=== PATIENT | female | born 1945 | race Caucasian/White ===

== ENCOUNTER 2017-05-08 16:00 | Emergency (ER) | payer OTHER ==
[2017-05-08 16:14] VITALS: PULSE 83; BMI 26.4
--- NOTE | 2017-05-08 17:53 | PDOC ---
History of Present Illness - History of Present Illness Initial Comments: 05/08/17 18:29 The patient is a 71 year old female, with no significant past medical history, who presents to the emergency department with abdominal pressure and pain to the left lower quadrant for 3 days. The patient reports the abdominal pressure and pain as 5/10 in severity, constant, and localized to the left lower quadrant. She reports the pressure is alleviated after a bowel movement and reports her last BM was loose, formed, and brown this morning. She reports some nausea but denies vomiting. She denies chest pain, shortness of breath, headache and dizziness. She denies fever, chills, vomit, diarrhea and constipation. She denies dysuria, frequency, urgency and hematuria. Allergies: NKDA Past surgical history: bilateral oophorectomy, cataract PCP - Dr. Roberto Duque <Juana Duran - Last Filed: 05/08/17 18:29> - General History Source: Patient Exam Limitations: No Limitations <Roseann Live - Last Filed: 05/09/17 11:45> - General Chief Complaint: Pain Stated Complaint: ABD PAIN (PCP SENT) divertic Time Seen by Provider: 05/08/17 17:53 Past History <Juana Duran - Last Filed: 05/08/17 18:29> - Past Medical History Other medical history: glucoma - Psycho/Social/Smoking Cessation Hx Anxiety: No Suicidal Ideation: No Smoking History: Never smoked Have you smoked in the past 12 months: No Information on smoking cessation initiated: No Hx Alcohol Use: No Drug/Substance Use Hx: No Substance Use Type: None <Roseann Live - Last Filed: 05/09/17 11:45> - Past Medical History Allergies/Adverse Reactions: Allergies Allergy/AdvReac Type Severity Reaction Status Date / Time No Known Allergies Allergy Verified 05/08/17 16:10 Home Medications: Ambulatory Orders Ibuprofen [Motrin] 600 mg PO TID #30 tablet 05/08/17 Levofloxacin [Levaquin -] 500 mg PO DAILY #7 tablet 05/08/17 Metoclopramide HCl [Reglan -] 10 mg PO QID #28 tablet 05/08/17 Metronidazole [Flagyl] 500 mg PO BID #14 tablet 05/08/17 Oxycodone HCl/Acetaminophen [Percocet 5-325 mg Tablet] 1 - 2 tab PO Q6H #20 tablet MDD 4 05/08/17 Timolol 0.5% [Timoptic 0.5%] 1 drop OD DAILY 05/08/17 Review of Systems - Review of Systems Able to Perform ROS?: Yes Comments:: 05/08/17 18:29 CONSTITUTIONAL: Absent: fever, no chills, no fatigue EYES: Absent: visual changes ENT: Absent: ear pain, no sore throat CARDIOVASCULAR: Absent: chest pain, no palpitations RESPIRATORY: Absent: cough, no SOB GASTROINTESTINAL: (+) LLQ pain and pressure. mild nausea. Absent: no vomiting, no constipation, no diarrhea GENITOURINARY: Absent: dysuria, no frequency, no hematuria MUSCULOSKELETAL: Absent: back pain, no arthralgia, no myalgia SKIN: Absent: rash NEURO: Absent: headache <Juana Duran - Last Filed: 05/08/17 18:29> *Physical Exam - Vital Signs Last Vital Signs Temp Pulse Resp BP Pulse Ox 98.3 F 83 18 169/71 100 05/08/17 16:11 05/08/17 16:11 05/08/17 16:11 05/08/17 16:11 05/08/17 16:11 - Physical Exam Comments: 05/08/17 18:30 GENERAL: The patient is in no acute distress. HEAD: Normal with no signs of trauma. EYES: PERRLA, EOMI, sclera anicteric, conjunctiva clear. ENT: Ears normal, nares patent, oropharynx clear without exudates. Moist mucous membranes. NECK: Normal range of motion, supple without lymphadenopathy, JVD, or masses. LUNGS: Breath sounds equal, clear to auscultation bilaterally. No wheezes, and no crackles. HEART:Regular rate and rhythm, normal S1 and S2 without murmur, rub or gallop. ABDOMEN: (+) LLQ tenderness to palpation without guarding or rebound. Soft, normoactive bowel sounds. No guarding, no rebound. No masses palpable. EXTREMITIES: Normal range of motion, no edema. No clubbing or cyanosis. No erythema, or tenderness. NEUROLOGICAL: Cranial nerves II through XII grossly intact. Normal speech. No focal neurological deficits. MUSCULOSKELETAL: Back non-tender to palpation, no CVA tenderness SKIN: Warm, Dry, normal turgor, no rashes or lesions noted. <Juana Duran - Last Filed: 05/08/17 18:29> - Vital Signs Last Vital Signs Temp Pulse Resp BP Pulse Ox 98.3 F 83 18 169/71 100 05/08/17 16:11 05/08/17 16:11 05/08/17 16:11 05/08/17 16:11 05/08/17 16:11 <Roseann Live - Last Filed: 05/09/17 11:45> ED Treatment Course - LABORATORY CBC & Chemistry Diagram: 05/08/17 18:03 05/08/17 18:22 <Roseann Live - Last Filed: 05/09/17 11:45> Medical Decision Making - Medical Decision Making 05/08/17 17:53 A portion of this note was documented by scribe services under my direction. I have reviewed the details of the note, within reason, and agree with the documentation with the following case summary and management plan written by me. Nursing documentation reviewed and incorporated into medical decision making 05/09/17 11:43 This patient is a 71-year-old female with no major medical problems who presents emergency department with several days of left lower quadrant pain and tenderness. No fevers or chills. No prior episodes like this Tolerating PO but has switched to a liquid diet and has decreased po intacke Was seen at urgent care Sent to the ER for evaluation Examination concerning for LLQ tenderness No involuntary guarding or rebound Will do labs Will plan for CT scan Pt signed out to Dr Simons pending Labs and CT <Roseann Live - Last Filed: 05/09/17 11:45> *DC/Admit/Observation/Transfer - Attestations Scribe Attestion: 05/08/17 18:31 Documentation prepared by Juana Duran, acting as medical economics consultant for Roseann Live MD <Juana Duran - Last Filed: 05/08/17 18:29> <Roseann Live - Last Filed: 05/09/17 11:45> Diagnosis at time of Disposition: Diverticulitis - Prescriptions Prescriptions: Metronidazole [Flagyl] 500 mg PO BID #14 tablet Levofloxacin [Levaquin -] 500 mg PO DAILY #7 tablet Ibuprofen [Motrin] 600 mg PO TID #30 tablet Oxycodone HCl/Acetaminophen [Percocet 5-325 mg Tablet] 1 - 2 tab PO Q6H #20 tablet MDD 4 Metoclopramide HCl [Reglan -] 10 mg PO QID #28 tablet - Referrals Referrals: Loly Menezes MD [Primary Care Provider] - Naveen Mccollum MD [Staff Physician] - - Patient Instructions Printed Discharge Instructions: DI for Diverticulitis, DI for Diverticulosis
[2017-05-08 18:47] LABS: BASOPHIL 0.4 % (0-2.0); EOSINOPHIL 0.5 % (0-4.5); MCH 29.4 pg (25.7-33.7); MCHC 34.1 g/dl (32.0-36.0); MEAN CELL VOLUME 86.1 fl (80-96); MEAN PLT VOLUME 9.1 fl (7.5-11.1); NEUTROPHILS 81.4 % (42.8-82.8); PLATELET COUNT 248 K/MM3 (134-434); RDW 13.5 % (11.6-15.6); WHITE BLOOD COUNT 12.4 K/mm3 (4.0-10.0)
[2017-05-08 18:57] LABS: URINE APPEARANCE CLEAR; URINE BILIRUBIN NEGATIVE (NEGATIVE); URINE BLOOD NEGATIVE (NEGATIVE); URINE COLOR YELLOW; URINE GLUCOSE (UA) NEGATIVE (NEGATIVE); URINE KETONE TRACE (NEGATIVE); URINE LEUK ESTERASE NEGATIVE (NEGATIVE); URINE NITRITE NEGATIVE (NEGATIVE); URINE PROTEIN NEGATIVE (NEGATIVE); URINE UROBILINOGEN NEGATIVE mg/dL (0.2-1.0)
[2017-05-08 19:23] LABS: ALBUMIN 3.6 g/dl (3.4-5.0); ANION GAP 6 (8-16); BILIRUBIN,TOTAL 0.6 mg/dL (0.2-1.0); CALCIUM 9.4 mg/dL (8.5-10.1); CO2 28 mmol/L (21-32); CREATININE 0.9 mg/dL (0.55-1.02); GLUCOSE,RANDOM 114 mg/dL (74-106); SGOT/AST 13 U/L (15-37); SGPT/ALT 22 U/L (12-78); TOT PROT 7.2 g/dl (6.4-8.2)
[2017-05-08 19:24] LABS: ALK PHOS 92 U/L (45-117)
[2017-05-08] MEDS ORDERED: metroNIDAZOLE 250 MG TABLET PO ONE (22:20)
[2017-05-08] MEDS ORDERED: LEVOFLOXACIN 500 MG TABLET (FP) PO ONE (22:20)
--- NOTE | 2017-05-08 22:27 | PDOC ---
*Physical Exam - Vital Signs Last Vital Signs Temp Pulse Resp BP Pulse Ox 98.3 F 83 18 169/71 100 05/08/17 16:11 05/08/17 16:11 05/08/17 16:11 05/08/17 16:11 05/08/17 16:11 ED Treatment Course - LABORATORY CBC & Chemistry Diagram: 05/08/17 18:03 05/08/17 18:22 - ADDITIONAL ORDERS Additional order review: Laboratory Results 05/08/17 05/08/17 18:22 18:03 Sodium 136 Potassium 4.1 Chloride 102 Carbon Dioxide 28 Anion Gap 6 L BUN 12 Creatinine 0.9 Creat Clearance w eGFR > 60 Random Glucose 114 H Calcium 9.4 Total Bilirubin 0.6 AST 13 L ALT 22 Alkaline Phosphatase 92 Total Protein 7.2 Albumin 3.6 Urine Color Yellow Urine Appearance Clear Urine pH 5.0 Ur Specific [place] 1.025 Urine Protein Negative Urine Glucose (UA) Negative Urine Ketones Trace H Urine Blood Negative Urine Nitrite Negative Urine Bilirubin Negative Urine Urobilinogen Negative Ur Leukocyte Esterase Negative 05/08/17 18:03 RBC 4.65 MCV 86.1 MCHC 34.1 RDW 13.5 MPV 9.1 Neutrophils % 81.4 Lymphocytes % 11.3 Monocytes % 6.4 Eosinophils % 0.5 Basophils % 0.4 *DC/Admit/Observation/Transfer Diagnosis at time of Disposition: Diverticulitis of intestine Qualifiers: Diverticulitis site: large intestine Diverticulitis bleeding: unspecified bleeding status Diverticulitis complication: without perforation or abscess Qualified Code(s): K57.32 - Diverticulitis of large intestine without perforation or abscess without bleeding - Discharge Dispostion Disposition: HOME Condition at time of disposition: Stable Admit: No - Prescriptions Prescriptions: Metronidazole [Flagyl] 500 mg PO BID #14 tablet Levofloxacin [Levaquin -] 500 mg PO DAILY #7 tablet Ibuprofen [Motrin] 600 mg PO TID #30 tablet Oxycodone HCl/Acetaminophen [Percocet 5-325 mg Tablet] 1 - 2 tab PO Q6H #20 tablet MDD 4 Metoclopramide HCl [Reglan -] 10 mg PO QID #28 tablet - Referrals Referrals: Loly Menezes MD [Primary Care Provider] - Naveen Mccollum MD [Staff Physician] - - Patient Instructions Printed Discharge Instructions: DI for Diverticulitis, DI for Diverticulosis - Post Discharge Activity
[2017-05-08] MEDS ORDERED: LEVOFLOXACIN 500 MG TABLET (FP) ONE (22:32)
[2017-05-08] MEDS ORDERED: metroNIDAZOLE 250 MG TABLET ONE (22:32)
[2017-05-08 22:42] VITALS: BP 152/80; TEMP 99
== END 2017-05-08 22:46 | disposition home or self-care (01) ==
LOC: JER 16:00
DX: K57.32 Diverticulitis of large intestine without perforation or abscess without bleeding (principal); H40.9 Unspecified glaucoma
CPT/HCPCS: 36415; 74177-TC; 80053; 81003; 85025; 87040; 87086; 87186; 99283-25

== ENCOUNTER 2017-05-31 13:35 | Emergency (ER) | payer OTHER ==
[2017-05-31 13:49] VITALS: PULSE 66; TEMP 97.8; BMI 24.7
[2017-05-31] MEDS ORDERED: SODIUM CHLORIDE 1,000 ML IV STA (14:19)
--- NOTE | 2017-05-31 14:20 | PDOC ---
Attending Attestation - Resident Resident Name: Dana Rivera - ED Attending Attestation I have performed the following: I have examined & evaluated the patient, The case was reviewed & discussed with the resident, I agree w/resident's findings & plan, Exceptions are as noted - HPI HPI: 05/31/17 14:17 Dizzy - took Lisonipril for the first time today.... now dizzy... - Physicial Exam PE: 05/31/17 14:19 vss stable normotensive - Medical Decision Making 05/31/17 14:17 lightheaded now... VSS Nontoxic Normotensive 05/31/17 14:[address] Rivera's Assessment and Pain
[2017-05-31 15:05] LABS: BASOPHIL 0.8 % (0-2.0); EOSINOPHIL 3.2 % (0-4.5); MCH 29.6 pg (25.7-33.7); MCHC 34.4 g/dl (32.0-36.0); NEUTROPHILS 78.2 % (42.8-82.8); PLATELET COUNT 285 K/MM3 (134-434); RDW 13.7 % (11.6-15.6); WHITE BLOOD COUNT 9.6 K/mm3 (4.0-10.0)
[2017-05-31 15:33] LABS: ALBUMIN 3.3 g/dl (3.4-5.0); ALK PHOS 78 U/L (45-117); ANION GAP 9 (8-16); BILIRUBIN,TOTAL 0.5 mg/dL (0.2-1.0); CALCIUM 8.9 mg/dL (8.5-10.1); CO2 25 mmol/L (21-32); CPK 100 IU/L (26-192); CREATININE 1.1 mg/dL (0.55-1.02); GLUCOSE,RANDOM 128 mg/dL (74-106); SGOT/AST 23 U/L (15-37); SGPT/ALT 26 U/L (12-78); TOT PROT 6.8 g/dl (6.4-8.2)
[2017-05-31 15:35] LABS: TROPONIN I < 0.02 ng/ml (0.00-0.05)
--- NOTE | 2017-05-31 15:56 | PDOC ---
History of Present Illness - General Chief Complaint: Lightheaded Stated Complaint: DIZZINESS Time Seen by Provider: 05/31/17 14:03 History Source: Patient Exam Limitations: No Limitations - History of Present Illness Initial Comments: 71yo F with PMH of newly diagnosed htn presents c/o dizziness. Pt took Lisinopril for the first time this morning with her breakfast (yogurt) at 8: 30am. She felt slightly lightheaded all morning. At noon pt felt dizzy, diaphoretic, blurred vision and had one episode of diarrhea. These symptoms have resolved now. Pt was in hospital last month for diverticulitis. Upon follow-up outpatient from that visit, her htn was newly diagnosed. Pt denies fever, sick contacts, recent travel, nausea, vomiting, syncope, palpitations, SOB. 05/31/17 15:50 Timing/Duration: 4-6 hours Aspirin Received prior to arrival: Yes: no aspirin today Past History - Past Medical History Allergies/Adverse Reactions: Allergies Allergy/AdvReac Type Severity Reaction Status Date / Time No Known Allergies Allergy Verified 05/31/17 13:47 Home Medications: Ambulatory Orders Timolol 0.5% [Timoptic 0.5%] 1 drop OD DAILY 05/08/17 Lisinopril [Prinivil] 20 mg PO DAILY 05/31/17 GI Disorders: Yes (diverticulosis) HTN: Yes Other medical history: glucoma - Surgical History Other Surgical History: karyn oophorectomy, cataract surgery 05/31/17 15:59 - Family Disease History Family Disease History: Heart Disease: Father (htn) - Psycho/Social/Smoking Cessation Hx Anxiety: No Suicidal Ideation: No Smoking History: Never smoked Have you smoked in the past 12 months: No Information on smoking cessation initiated: No Hx Alcohol Use: No Drug/Substance Use Hx: No Substance Use Type: None Review of Systems - Review of Systems Able to Perform ROS?: Yes Is the patient limited Gambian proficient: No Constitutional: Yes: Diaphoresis. No: Chills, Fever HEENTM: Yes: Blurred Vision. No: Ear Pain, Nose Pain, Throat Pain Respiratory: No: Cough, Orthopnea, Shortness of Breath, Stridor, Wheezing, Hemoptysis Cardiac (ROS): No: Chest Pain, Edema, Irregular Heart Rate, Lightheadedness, Palpitations, Syncope, Chest Tightness ABD/GI: Yes: Diarrhea (x 1). No: Abdominal Distended, Constipated, Nausea, Rectal Bleeding, Vomiting, Abdominal cramping : No: Burning, Dysuria, Hematuria Musculoskeletal: No: Back Pain, Joint Pain, Muscle Pain Integumentary: No: Bruising, Lesions, Rash Neurological: Yes: Dizziness. No: Headache, Paresthesia *Physical Exam - Vital Signs Last Vital Signs Temp Pulse Resp BP Pulse Ox 97.8 F 66 18 121/64 100 05/31/17 13:47 05/31/17 13:47 05/31/17 13:47 05/31/17 13:47 05/31/17 13:47 - Physical Exam General Appearance: Yes: Nourished, Appropriately Dressed. No: Apparent Distress HEENT: positive: EOMI, Normal Voice. negative: Pale Conjunctivae, Scleral Icterus (R), Scleral Icterus (L) Neck: positive: Trachea midline, Supple Respiratory/Chest: positive: Lungs Clear, Normal Breath Sounds. negative: Respiratory Distress, Accessory Muscle Use Cardiovascular: positive: Regular Rhythm, Regular Rate, S1, S2. negative: Murmur Gastrointestinal/Abdominal: positive: Soft. negative: Distended, Guarding, Rebound, Tenderness Musculoskeletal: positive: Normal Inspection Extremity: positive: Normal Inspection, Normal Range of Motion. negative: Swelling, Calf Tenderness Integumentary: positive: Dry, Warm. negative: Rash Neurologic: positive: Fully Oriented, Alert, Normal Mood/Affect, Normal Response (no orthostatic changes: blood pressure 119/53 lying down and 120/58 while standing up.), Motor Strength 5/5 ED Treatment Course - LABORATORY CBC & Chemistry Diagram: 05/31/17 14:56 05/31/17 14:56 - ADDITIONAL ORDERS Additional order review: Laboratory Results 05/31/17 14:56 Sodium 139 Potassium 3.8 Chloride 105 Carbon Dioxide 25 Anion Gap 9 BUN 19 H D Creatinine 1.1 H D Creat Clearance w eGFR 49.25 Random Glucose 128 H Calcium 8.9 Total Bilirubin 0.5 AST 23 D ALT 26 Alkaline Phosphatase 78 Creatine Kinase 100 Troponin I < 0.02 Total Protein 6.8 Albumin 3.3 L 05/31/17 14:56 RBC 4.37 MCV 86.0 MCHC 34.4 RDW 13.7 MPV 9.0 Neutrophils % 78.2 Lymphocytes % 13.3 Monocytes % 4.5 Eosinophils % 3.2 D Basophils % 0.8 - RADIOLOGY Radiology Studies Ordered: Category Date Time Status CXRPORT [CHEST X-RAY PORTABLE*] [RAD] Stat Radiology 05/31/17 14:19 Taken - Medications Given in the ED: ED Medications Discontinued Medications Generic Name Dose Route Start Last Admin Trade Name Freq PRN Reason Stop Dose Admin Sodium Chloride 1,000 mls @ 1,000 mls/hr 05/31/17 14:19 05/31/17 15:03 Normal Saline - IV 05/31/17 15:18 1,000 mls/hr ASDIR STA Administration Medical Decision Making - Medical Decision Making 71yo F with PMH of newly diagnosed htn presents c/o dizziness. Pt took Lisinopril for the first time this morning at 8:30am. She felt dizzy, diaphoretic with a brief period of blurred vision at noon today. These symptoms have now resolved. CXR - reveals no acute disease EKG - reveals NSR NS 1 L bolus given CBC with diff, CMP unremarkable troponins (-) 05/31/17 16:13 05/31/17 16:20 Pt can go home. *DC/Admit/Observation/Transfer Diagnosis at time of Disposition: Dizziness - Discharge Dispostion Disposition: HOME Condition at time of disposition: Stable Admit: No - Referrals Referrals: Loly Menezes MD [Primary Care Provider] - - Patient Instructions Printed Discharge Instructions: DI for Dizziness-Nonvertigo Additional Instructions: Please try taking 1/2 a pill of Lisinopril tomorrow morning instead of a full pill. Consider getting a blood pressure monitor for home use to track your blood pressure.
[2017-05-31 16:48] VITALS: BP 129/64
--- NOTE | 2017-06-01 09:03 | EKG ---
Test Reason : Blood Pressure : / mmHG Vent. Rate : 060 BPM Atrial Rate : 060 BPM P-R Int : 172 ms QRS Dur : 084 ms QT Int : 454 ms P-R-T Axes : 053 013 038 degrees QTc Int : 454 ms NORMAL SINUS RHYTHM CANNOT RULE OUT ANTERIOR INFARCT , AGE UNDETERMINED ABNORMAL ECG NO PREVIOUS ECGS AVAILABLE Confirmed by PIPO BALDERAS MD ([id number]) on 06/01/2017 9:02:53 AM Referred By: Confirmed By:PIPO BALDERAS MD
== END 2017-05-31 16:48 | disposition home or self-care (01) ==
LOC: JER 13:35
PROC: 3E0337Z Introduction of Electrolytic and Water Balance Substance into Peripheral Vein, Percutaneous Approach (ICD-10-PCS; principal; 2017-05-31)
DX: R42 Dizziness and giddiness (principal); I10 Essential (primary) hypertension; H40.9 Unspecified glaucoma
CPT/HCPCS: 36415; 71010-TC; 80053; 84484; 85025; 93005; 93010; 99283-25

== ENCOUNTER 2019-11-19 23:51 | Emergency (ER) | payer OTHER ==
[2019-11-20 00:32] VITALS: PULSE 89; TEMP 98; BMI 23.0
[2019-11-20] MEDS ORDERED: diazePAM 2 MG TABLET PO ONE (00:44)
[2019-11-20] MEDS ORDERED: METOPROLOL TARTRATE 50 MG TABLET (FP) PO ONE (00:44)
[2019-11-20] MEDS ORDERED: ACETAMINOPHEN 500 MG TABLET (FP) PO ONE (00:44)
[2019-11-20] MEDS ORDERED: amLODIPine BESYLATE 10 MG TABLET (FP) PO ONE (00:50)
[2019-11-20] MEDS ORDERED: ACETAMINOPHEN 325 MG TABLET (FP) ONE (00:54)
[2019-11-20] MEDS ORDERED: amLODIPine BESYLATE 5 MG TABLET (FP) ONE (00:54)
[2019-11-20 02:17] VITALS: BP 171/84
--- NOTE | 2019-11-20 02:46 | PDOC ---
History of Present Illness - General History Source: Patient Exam Limitations: No Limitations <Gabriella Erwin - Last Filed: 11/20/19 02:35> <David Corrales - Last Filed: 11/21/19 02:02> - General Chief Complaint: Blood Pressure Problem Stated Complaint: BLOOD PRESSURE PROBLEM Time Seen by Provider: 11/20/19 00:43 Past History - Past Medical History COPD: No GI Disorders: Yes (diverticulosis) HTN: Yes - Psycho Social/Smoking Cessation Hx Smoking History: Never smoked Have you smoked in the past 12 months: No Information on smoking cessation initiated: No Hx Alcohol Use: No Drug/Substance Use Hx: No Substance Use Type: None <Gabriella Erwin - Last Filed: 11/20/19 02:35> <David Corrales - Last Filed: 11/21/19 02:02> - Past Medical History Allergies/Adverse Reactions: Allergies Allergy/AdvReac Type Severity Reaction Status Date / Time No Known Allergies Allergy Verified 11/20/19 00:09 Home Medications: Ambulatory Orders Timolol 0.5% [Timoptic 0.5%] 1 drop OD DAILY 05/08/17 Lisinopril [Prinivil] 20 mg PO DAILY 05/31/17 Amlodipine Besylate [Norvasc -] 5 mg PO DAILY #30 tablet 11/20/19 *Physical Exam - Vital Signs Last Vital Signs Temp Pulse Resp BP Pulse Ox 98.0 F 89 18 171/84 H 100 11/20/19 00:19 11/20/19 00:19 11/20/19 00:19 11/20/19 02:16 11/20/19 00:19 - Physical Exam General Appearance: No: Apparent Distress HEENT: positive: JULIETTE Respiratory/Chest: positive: Lungs Clear, Normal Breath Sounds. negative: Respiratory Distress Cardiovascular: positive: Regular Rhythm, Regular Rate, S1, S2. negative: Murmur Neurologic: positive: unix manager II-XII NML intact, Fully Oriented, Alert, Normal Mood/ Affect, Motor Strength 5/5 <Gabriella Erwin - Last Filed: 11/20/19 02:35> - Vital Signs Last Vital Signs Temp Pulse Resp BP Pulse Ox 98.0 F 89 18 171/84 H 100 11/20/19 00:19 11/20/19 00:19 11/20/19 00:19 11/20/19 02:16 11/20/19 00:19 <David Corrales - Last Filed: 11/21/19 02:02> ED Treatment Course - Medications Given in the ED: ED Medications Discontinued Medications Generic Name Dose Route Start Last Admin Trade Name Freq PRN Reason Stop Dose Admin Acetaminophen 1,000 mg 11/20/19 00:44 11/20/19 01:04 Tylenol - PO 11/20/19 00:45 1,000 mg ONCE ONE Administration Amlodipine Besylate 10 mg 11/20/19 00:50 11/20/19 01:04 Norvasc - PO 11/20/19 00:51 10 mg ONCE ONE Administration Diazepam 2 mg 11/20/19 00:44 11/20/19 01:03 Valium - PO 11/20/19 00:45 Not Given ONCE ONE Metoprolol Tartrate 50 mg 11/20/19 00:44 11/20/19 01:03 Lopressor - PO 11/20/19 00:45 Not Given ONCE ONE <Gabriella Erwin - Last Filed: 11/20/19 02:35> - RADIOLOGY Radiology Studies Ordered: Category Date Time Status HEAD CT WITHOUT CONTRAST [CT] Stat CT Scan 11/20/19 00:45 Completed - Medications Given in the ED: ED Medications Discontinued Medications Generic Name Dose Route Start Last Admin Trade Name Freq PRN Reason Stop Dose Admin Acetaminophen 1,000 mg 11/20/19 00:44 11/20/19 01:04 Tylenol - PO 11/20/19 00:45 1,000 mg ONCE ONE Administration Amlodipine Besylate 10 mg 11/20/19 00:50 11/20/19 01:04 Norvasc - PO 11/20/19 00:51 10 mg ONCE ONE Administration Diazepam 2 mg 11/20/19 00:44 11/20/19 01:03 Valium - PO 11/20/19 00:45 Not Given ONCE ONE Metoprolol Tartrate 50 mg 11/20/19 00:44 11/20/19 01:03 Lopressor - PO 11/20/19 00:45 Not Given ONCE ONE <David Corrales - Last Filed: 11/21/19 02:02> Medical Decision Making - Medical Decision Making 73 y/o F hx of HTN, HLD, glaucoma presents as noted her BP has been high today since 4-5 PM (mentions SBP in 200s). Takes only Toprol XL 50 mg daily for her blood pressure. Also mentions having fullness in her head, but denies pain. Denies visual/gait changes, numbness/tingling/weakness of extremities, cp, sob, abd pain. Given Norvasc with improvement in BP to 171/[address] negative EKG: NSR at 80 bpm, no ST-T changes D/W Dr. Corrales - no need for labs Patient feeling better Stable for dc 11/20/19 02:36 <Gabriella Erwin - Last Filed: 11/20/19 02:35> - Medical Decision Making 11/21/19 02:00 73 yo female w/ mild head pressure and htn/ neck stiffness, no cp sob light headedness/dizziness or abd pain. No nausea. No weakness. Otherwise feels well. Noticed her BP was high and came to ed. Took home bp meds. No other co EKG Non ischemic Neuro intact CTA bilat RRR Well appearing AP 73 yo female w/ symptomatic htn in form of head pressure plan for cth to ro ich , bp control, ekg and reassesment On reassessment pt bp is reduced by >25% feels well and would likle to go home Given return precautions I have seen and evaluated the patient. I agree with the providers note as well as management and care <David Corrales - Last Filed: 11/21/19 02:02> Discharge - Discharge Information Problems reviewed: Yes - Admission No - Additional Discharge Information Prescription Drug Monitoring Program (I-STOP) results: I-STOP not reviewed <Gabriella Erwin - Last Filed: 11/20/19 02:35> <David Corrales - Last Filed: 11/21/19 02:02> - Discharge Information Clinical Impression/Diagnosis: Hypertensive urgency Condition: Improved Disposition: HOME - Additional Discharge Information Prescriptions: Amlodipine Besylate [Norvasc -] 5 mg PO DAILY #30 tablet - Patient Discharge Instructions Patient Printed Discharge Instructions: DI for High Blood Pressure Additional Instructions: Thank you for choosing [facility]. It was a pleasure taking care of you. Continue to monitor your blood pressure You were started on another medication called [facility] for your blood pressure Be sure to follow-up with your doctor in 2 days Return to the Emergency Department if your symptoms worsen or persist, you have shortness of breath, chest pain, vomiting, weakness of extremities (arms and/or legs), changes in vision or walking or other concerning symptoms.
--- NOTE | 2019-11-20 11:52 | EKG ---
Test Reason : Blood Pressure : / mmHG Vent. Rate : 080 BPM Atrial Rate : 080 BPM P-R Int : 180 ms QRS Dur : 102 ms QT Int : 388 ms P-R-T Axes : 050 -24 062 degrees QTc Int : 447 ms NORMAL SINUS RHYTHM ANTERIOR INFARCT (CITED ON OR BEFORE 31-MAY-2017) ABNORMAL ECG WHEN COMPARED WITH ECG OF 31-MAY-2017 15:08, QUESTIONABLE CHANGE IN INITIAL FORCES OF ANTERIOR LEADS Confirmed by YOKO GONGORA, DEON ([id number]) on 11/20/2019 11:52:23 AM Referred By: Confirmed By:DEON BABCOCK MD
== END 2019-11-20 02:57 | disposition home or self-care (01) ==
LOC: JER 23:51
DX: I16.0 Hypertensive urgency (principal); K57.90 Diverticulosis of intestine, part unspecified, without perforation or abscess without bleeding
CPT/HCPCS: 70450-TC; 93005; 93010; 99285-25